=== PATIENT | female | born 1955 | race Caucasian/White ===

== ENCOUNTER → 2021-04-30 | Outpatient (CLI) | payer OTHER | LOC: KOH-I 08:11 | DX: G43.109 Migraine with aura, not intractable, without status migrainosus (principal); I67.89 Other cerebrovascular disease | CPT/HCPCS: 70551 ==

== ENCOUNTER → 2021-05-22 | Outpatient (CLI) | payer OTHER | LOC: CT 07:54 | DX: D37.09 Neoplasm of uncertain behavior of other specified sites of the oral cavity (principal) | CPT/HCPCS: 36415; 70491; 82565; Q9967 ==

== ENCOUNTER → 2021-08-05 | Outpatient (CLI) | payer SELFPAY | LOC: LAB 09:20 | DX: Z20.822 Contact with and (suspected) exposure to COVID-19 (principal) | CPT/HCPCS: U0003 ==